=== PATIENT | female | born 1980 | race Caucasian/White ===

== ENCOUNTER 2019-11-16 12:26 | Emergency (ER) | payer BC, SELFPAY ==
--- NOTE | ~2019-11-16 | XR_ITS ---
EXAMINATION: XR hand RT min 3V INDICATION: Right hand pain TECHNIQUE: Four views of the right hand are obtained. COMPARISON: None available FINDINGS: There is a dorsal soft tissue laceration of the fifth finger overlying the proximal phalanx . Bone alignment is normal. There is no fracture. The joint spaces are normal. IMPRESSION: 1. Dorsal soft tissue swelling of the fifth finger without underlying osseous abnormality. Reviewed, dictated and finalized at location B. IMPRESSION: 1. Dorsal soft tissue swelling of the fifth finger without underlying osseous a bnormality.
[2019-11-16 12:29] VITALS: BP 147/80; PULSE 88; RESP 14; TEMP 36.4; O2SAT 98
[2019-11-16] MEDS: ONDANSETRON HCL ODT 4 MG TABLET (13:10)
[2019-11-16] MEDS: IBUPROFEN 600 MG TABLET PO (13:22)
--- NOTE | 2019-11-16 13:22 | ED.WOUNDLAC ---
HPI - Wound/Laceration General Chief Complaint: Wound/Laceration <Savannah Wing PA-C - Last Filed: 11/16/19 14:28> Stated Complaint: right pinky lac <Savannah Wing PA-C - Last Filed: 11/16/19 14:28> Time Seen by Provider: 11/16/19 12:54 <Savannah Wing PA-C - Last Filed: 11/16/19 14:28> Source: patient <HALIMA Perera Last Filed: 11/16/19 14:28> Mode of arrival: ambulatory <Savannah Wing PA-C - Last Filed: 11/16/19 14:28> Limitations: no limitations <Savannah Wing PA-C - Last Filed: 11/16/19 14:28> History of Present Illness HPI narrative: This is a 39 year old female that presents to the ER for dog bite sustained just prior to arrival. Reports she was trying to break up her dogs fighting and one of them bit her right hand causing a laceration to the 5th finger. Reports pain in the area. Reports she is up to date on tetanus and her dogs are up to date on their vaccines. Denies decreased ROM or numbness. <Savannah Wing PA-C - Last Filed: 11/16/19 14:28> Related Data Allergies/Adverse Reactions: Allergies Allergy/AdvReac Type Severity Reaction Status Date / Time No Known Allergies Allergy Verified 11/16/19 12:45 <Savannah Wing PA-C - Last Filed: 11/16/19 14:28> Review of Systems Review of Systems: Narrative: CONSTITUTIONAL: Denies fever SKIN: Reports laceration MUSCULOSKELETAL: Reports joint pain, and myalgia. NEUROLOGIC: Denies numbness <Savannah Wing PA-C - Last Filed: 11/16/19 14:28> All systems reviewed & are unremarkable except as noted in HPI and below <Savannah Wing PA-C - Last Filed: 11/16/19 14:28> PMFSH Past Medical History Medical History: Medical History (Updated 11/16/19 @ 13:53 by Savannah Wing PA-C) History of anxiety <HALIMA Perera Last Filed: 11/16/19 14:28> Family History Family History: Family History (Updated 01/14/17 @ 07:53 by DOCTOR UNKNOWN) Grandparent Diabetes mellitus, Onset Age: 51 Hypertension, Onset Age: 69 Family history of cardiovascular disease, Onset Age: 69 Acute myocardial infarction, Onset Age: 69 Family history unknown Mother Family history unknown Father Family history of primary malignant neoplasm of liver, Onset Age: 59 Family history of emphysema, Onset Age: 59 <HALIMA Perera Last Filed: 11/16/19 14:28> Social History Social History: Social History Smoking status: Never smoker Alcohol intake: current Gender identity (if verbalized by the patient): Female <HALIMA Perera Last Filed: 11/16/19 14:28> Exam Narrative: Exam Narrative: GENERAL: Well-appearing, well-nourished, and in no acute distress. HEAD: Normocephalic, atraumatic. EYES: EOMI. EXTREMITIES: Normal range of motion. No edema or obvious deformity. Right 5th finger with 1.5cm linear laceration into subcutaneous tissue over the ulnar side SKIN: Warm, dry, no rash. NEURO: No focal deficits. Alert and oriented x3. PSYCH: Normal mood and affect <Savannah Wing PA-C - Last Filed: 11/16/19 14:28> Course Vital Signs Vital signs: Vital Signs Temperature 36.4 C 11/16/19 12:29 Pulse Rate 88 11/16/19 12:29 Respiratory Rate 14 11/16/19 12:29 Blood Pressure 147/80 H 11/16/19 12:29 Pulse Oximetry 98 11/16/19 12:29 Temperature 36.4 C 11/16/19 12:29 Pulse Rate 88 11/16/19 12:29 Respiratory Rate 14 11/16/19 12:29 Blood Pressure 147/80 H 11/16/19 12:29 Pulse Oximetry 98 11/16/19 12:29 <HALIMA Perera Last Filed: 11/16/19 14:28> Vital Signs Temperature 36.4 C 11/16/19 12:29 Pulse Rate 88 11/16/19 12:29 Respiratory Rate 14 11/16/19 12:29 Blood Pressure 147/80 H 11/16/19 12:29 Pulse Oximetry 98 11/16/19 12:29 Temperature 36.4 C 11/16/19 12:29 Pulse Rate 88 11/16/19 12:29 Respiratory Rate 14 11/16/19 12:29 Blood Pressure 147/80 H 11/16/19 12:29 Pulse
== END 2019-11-16 14:38 | disposition home or self-care (01) ==
PROVIDERS: Emergency Provider Emergency Medicine; PCP Nurse Practitioner Family
DX: S61.256A Open bite of right little finger without damage to nail, initial encounter (principal); W54.0XXA Bitten by dog, initial encounter
CPT/HCPCS: 73130; 99283; A9270; J2405